=== PATIENT | male | born 1990 | race American Indian/Alaskan Native ===

== ENCOUNTER 2016-07-19 11:33 | Emergency (ER) | payer SELFPAY ==
[2016-07-19 11:43] VITALS: BP 142/103
--- NOTE | 2016-07-19 12:28 | Emergency Department Report ---
Chief Complaint: Abdominal Pain Stated Complaint: STOMACH PAIN/TESTICLE PAIN/VOMITING Time Seen by Provider: 07/19/16 12:28 - HPI History of Present Illness: Patient here complaining of abdominal pain or groin pain that started yesterday. He is also reporting testicular pain on the right side. He complains of pain is 10 out of 10 and feels sharp. Reports nausea and vomiting. Denies diarrhea. Denies any urinary burning frequency or urgency. Denies any penile discharge. Blood pressure is 142/103 and he does not have history of high blood pressure. - ROS Review of Systems: Systems are negative unless stated in HPI above. - Exam Vital Signs: Vital Signs 07/19/16 11:40 Temperature 98.2 F Pulse Rate 86 Respiratory 18 Rate Blood Pressure 142/103 O2 Sat by Pulse 100 Oximetry Physical Exam: General: This is a 25-year-old male well-nourished well-developed in no acute distress. CV: S1, S2. Regular rate and rhythm. Abdomen: Tender to palpate periumbilical area. No guarding or rebound tenderness. Normal bowel sounds in all quadrant. Male : No testicular swelling or erythema. Normal scrotal exam. No masses or nodules felt the testicle. Tender to palpate to right testicle. No rashes or lesions or penile discharge noted to the penis MSE screening note: Focused history and physical exam performed. Due to findings the following was ordered:see mdm ED Medical Decision Making - Medical Decision Making Medical decision making: Patient seen by provider in triage area. Appropriate protocol activated and patient to main ED to be seen by physician. ED Disposition for MSE Condition: Stable
[2016-07-19 13:39] LABS: Basophils % (Auto) 0.4 % (0.0-1.8); Hematocrit 47.8 % (35.5-45.6); Hemoglobin 16.1 gm/dl (11.8-15.2); Mean Corpuscular HGB Conc 34 % (32-34); Mean Corpuscular Hemoglobin 28 pg (28-32); Mean Corpuscular Volume 84 fl (84-94); Platelet Count 226 K/mm3 (140-440); Red Cell Distribution Width 12.9 % (13.2-15.2); White Blood Count 19.1 K/mm3 (4.5-11.0)
[2016-07-19 13:54] LABS: Alanine Aminotransferase 13 units/L (7-56); Albumin/Globulin Ratio 1.2 %; Alkaline Phosphatase 76 units/L (35-129); Amylase 53 units/L (27-131); Bilirubin,Total 0.5 mg/dL (0.1-1.2); Blood Urea Nitrogen 10 mg/dL (9-20); Calcium 9.9 mg/dL (8.4-10.2); Carbon Dioxide 32 mmol/L (22-30); Chloride 95.7 mmol/L (98-107); Glucose 116 mg/dL (75-100); Lipase 17 units/L (13-60); Potassium 4.1 mmol/L (3.6-5.0); Sodium 141 mmol/L (137-145); Total Protein 9.2 g/dL (6.3-8.2)
--- NOTE | 2016-07-19 13:54 | Ultrasound Report ---
ULTRASOUND SCROTAL INDICATION: Right testicular pain. COMPARISON: None similar at this institution. FINDINGS: Longitudinal and transverse grayscale and color flow sonographic evaluation of the scrotum and its contents demonstrates normal testicular contour and echotexture bilaterally without suspicious intrinsic lesions. Preserved bilateral blood flow. Right testicle estimated at 4.7 x 1.6 x 3.1 cm while the left testicle is 4.4 x 1.4 x 3.4 cm. No significant hydrocele. Normal bilateral epididymi as well, estimated at 0.8 cm on either side. CONCLUSION: Normal testicular ultrasound, as described. Thank you for the opportunity to participate in this patient's care.
[2016-07-19 13:58] LABS: Anion Gap 17 mmol/L
[2016-07-19 15:03] LABS: Bilirubin,Urine NEG (Negative); Blood,Urine SM (Negative); Ketones,Urine TR mg/dL (Negative); Leukocyte Esterase,Urine NEG (Negative); Mucus,Urine 3+ /HPF; Nitrite,Urine NEG (Negative); Urobilinogen,Urine < 2.0 mg/dL (<2.0)
--- NOTE | 2016-07-20 11:03 | ED Elopement Review ---
ED Pt Elopement review - Results review Lab results: Laboratory Tests 07/19/16 07/19/16 07/19/16 13:29 13:29 14:09 WBC 19.1 H RBC 5.70 H Hgb 16.1 H Hct 47.8 H MCV 84 MCH 28 MCHC 34 RDW 12.9 L Plt Count 226 Lymph % (Auto) 7.7 L [place] % (Auto) 7.4 H Eos % (Auto) 0.0 Baso % (Auto) 0.4 Lymph # 1.5 [place]uming # 1.4 H Eos # 0.0 Baso # 0.1 Seg Neutrophils % 84.5 H Seg Neutrophils # 16.1 H Sodium 141 Potassium 4.1 Chloride 95.7 L Carbon Dioxide 32 H Anion Gap 17 BUN 10 Creatinine 0.8 Estimated GFR > 60 BUN/Creatinine Ratio 12.50 Glucose 116 H Calcium 9.9 Total Bilirubin 0.5 AST 18 ALT 13 Alkaline Phosphatase 76 Total Protein 9.2 H Albumin 5.0 Albumin/Globulin Ratio 1.2 Amylase 53 Lipase 17 Urine Color Yellow Urine Turbidity Clear Urine pH 7.0 Ur Specific [place] 1.031 H Urine Protein 100 mg/dl Urine Glucose (UA) Neg Urine Ketones Tr Urine Blood Sm Urine Nitrite Neg Urine Bilirubin Neg Urine Urobilinogen < 2.0 Ur Leukocyte Esterase Neg Urine WBC (Auto) 1.0 Urine RBC (Auto) 62.0 U Epithel Cells (Auto) < 1.0 Urine Mucus 3+ - Call Back decision Pt Call Back Decision: Pt to F/U with PMD (or return to the emergency department. WBC is 19,000 and positive hematuria. Rule out kidney stone)
== END 2016-07-19 13:10 | disposition left against medical advice (07) ==
LOC: ED 11:33
DX: N50.811 Right testicular pain (principal); R10.33 Periumbilical pain; R11.2 Nausea with vomiting, unspecified; Z53.21 Procedure and treatment not carried out due to patient leaving prior to being seen by health care provider
CPT/HCPCS: 36415; 80053; 81001; 82150; 83690; 85025; 93975